=== PATIENT | male | born 1995 ===

== ENCOUNTER → 2022-12-11 | Outpatient (CLI) | payer OTHER | END | disposition short-term general hospital (02) | LOC: EMS 15:39 | DX: S09.90XA Unspecified injury of head, initial encounter (principal); R40.4 Transient alteration of awareness; R42 Dizziness and giddiness; R11.0 Nausea; V28.09XA Other motorcycle driver injured in noncollision transport accident in nontraffic accident, initial encounter; Y93.89 Activity, other specified; Y92.838 Other recreation area as the place of occurrence of the external cause | CPT/HCPCS: A0425; A0427 ==